=== PATIENT | female | born 1980 | race Two or more races ===

== ENCOUNTER 2023-09-02 09:53 | Emergency (ER) | payer OTHER ==
[~2023-09-02] VITALS: Ht 167.6 cm; Wt 89.8 kg
== END 2023-09-02 14:36 | disposition home or self-care (01) ==
LOC: ER 09:54
DX: S99.912A Unspecified injury of left ankle, initial encounter (principal); W10.9XXA Fall (on) (from) unspecified stairs and steps, initial encounter; Y93.9 Activity, unspecified; Y92.019 Unspecified place in single-family (private) house as the place of occurrence of the external cause; Y99.9 Unspecified external cause status